=== PATIENT | female | born 1940 | race Caucasian/White ===

== ENCOUNTER 2016-12-31 06:25 | Day surgery (SDC) | payer MEDICARE, OTHER ==
[~2016-12-31 06:25] MED LIST: Lactated Ringers 1,000 ML IV SCH
[2016-12-31] MEDS ORDERED: fentaNYL 100 MCG/2 ML SDV ONE (07:53)
[2016-12-31] MEDS ORDERED: Propofol 200 MG/20 ML SDV ONE (07:53)
[2016-12-31 09:40] VITALS: BP 131/59
--- NOTE | 2016-12-31 14:30 | OR ---
PREOPERATIVE DIAGNOSIS: Screening colonoscopy. POSTOPERATIVE DIAGNOSIS: Polyp at 15 cm, removed. PROCEDURE PROPOSED: Total flexible colonoscopy. PROCEDURE DONE: Total flexible colonoscopy with polypectomy x1. INDICATION: This is a 76-year-old female who comes in for a 10-year screening colonoscopy. She denies any symptomatology. She has a grandmother with a history of polyps. TECHNIQUE: The patient was brought to the endoscopy suite, placed in left lateral decubitus position. She was sedated with propofol per BITUMASTIC APPLIER. The flexible video colonoscope was then passed transanally and under visualization advanced to the cecum without difficulty. Examination revealed a normal ascending, transverse, descending colon. In the sigmoid colon at 15 cm, there was an adenomatous polyp removed by hot snare technique and retrieved with suction, and the remainder of the rectosigmoid was normal as the scope was then withdrawn. The patient tolerated the procedure well. IMPRESSION: Sigmoid polyp at 15 cm removed. Otherwise, normal exam. PLAN: She will be sent a letter with pathology report. I felt she should consider having 1 more examination in her lifetime in 5 years from now, at which point she would be 81 years old. She will be sent a letter with the pathology report. SCM: 12/31/2016 08:44:01 MODL: 12/31/2016 10:20:17 /[id number]
== END 2016-12-31 10:29 | disposition home or self-care (01) ==
LOC: VM.SDS 06:25
PROVIDERS: ATTEND Surgery
DX: Z12.11 Encounter for screening for malignant neoplasm of colon (principal); D12.6 Benign neoplasm of colon, unspecified; I12.9 Hypertensive chronic kidney disease with stage 1 through stage 4 chronic kidney disease, or unspecified chronic kidney disease; N18.3 Chronic kidney disease, stage 3 (moderate); E78.5 Hyperlipidemia, unspecified; Z88.8 Allergy status to other drugs, medicaments and biological substances; Z88.1 Allergy status to other antibiotic agents; Z98.890 Other specified postprocedural states; Z79.899 Other long term (current) drug therapy; K21.9 Gastro-esophageal reflux disease without esophagitis
CPT/HCPCS: 45385; J2704; J3010; J7120; 00810; 88305

== ENCOUNTER 2017-03-30 10:50 | Emergency (ER) | payer MEDICARE, OTHER ==
--- NOTE | 2017-03-30 11:11 | EDM.PDOC ---
ED HPI GENERAL MEDICAL PROBLEM - General Chief Complaint: General Stated Complaint: dizziness Time Seen by Provider: 03/30/17 11:03 Source of Information: Reports: Patient, Family, RN, RN Notes Reviewed History Limitations: Reports: No Limitations - History of Present Illness INITIAL COMMENTS - FREE TEXT/NARRATIVE: Patient presents to the ED at [facility] with complaints of dizziness that started about one month ago and has progressively gotten worse. Patient states her first attack was about a year ago. She saw her PCP who recommended Meclizine , which worked to cure her symptoms at that time. About one month ago, her dizziness started again and has progressively gotten worse. This AM, patient states as she was trying to get out of bed, the dizziness started. She took 50 mg of Meclizine and waited about one hour. She states the dizziness has persisted. Onset: Gradual Duration: Constant - Related Data Allergies Allergy/AdvReac Type Severity Reaction Status Date / Time levofloxacin [From Levaquin] Allergy Nausea and Verified 03/30/17 10:57 Vomiting lisinopril Allergy Cough Verified 03/30/17 10:57 Home Meds: Home Meds Acetaminophen [Tylenol] 650 mg PO Q4H PRN 12/25/16 [History] Albuterol [Proventil HFA] 2 puff PO Q4H PRN 12/25/16 [History] Biotin 1 tab SL ASDIRECTED 12/25/16 [History] Budesonide/Formoterol [Symbicort 80-4.5 MCG] 2 puff INH BID 12/25/16 [History] Calcium Carbonate [Calcium] 600 mg PO BID 12/25/16 [History] Esomeprazole [NexIUM] 40 mg PO DAILY 12/25/16 [History] Fluticasone Propionate [Flonase Allergy Relief] 1 spray NASBOTH BID 12/25/16 [ History] Meclizine [Antivert] 25 mg PO Q4H PRN 12/25/16 [History] Prednisone [IJD: Prednisone] 5 mg PO DAILY 12/25/16 [History] Triamterene/Hydrochlorothiazid [Dyazide 37.5-25] 1 cap PO DAILY 12/25/16 [ History] atorvaSTATin [Lipitor] 10 mg PO DAILY 12/25/16 [History] Gabapentin [Neurontin] 100 mg PO BEDTIME 03/30/17 [History] Past Medical History HEENT History: Reports: Cataract Cardiovascular History: Reports: High Cholesterol, Hypertension Other Cardiovascular History: ATYPICAL CHEST PAIN Respiratory History: Reports: Asthma, Other (See Below) Other Respiratory History: LEFT LUNG LESION Gastrointestinal History: Reports: Diverticulosis, GERD Genitourinary History: Reports: Other (See Below) Other Genitourinary History: CKD III Musculoskeletal History: Reports: Osteoarthritis, Other (See Below) Other Musculoskeletal History: BONE AND CARTILAGE DISORDER Neurological History: Reports: Other (See Below) Other Neuro History: dizziness Psychiatric History: Reports: None Endocrine/Metabolic History: Reports: Other (See Below) Other Endocrine/Metabolic History: GOITER Hematologic History: Reports: None Immunologic History: Reports: Other (See Below) Other Immunologic History: POSITIVE DHEERAJ Oncologic (Cancer) History: Reports: None Dermatologic History: Reports: Other (See Below) Other Dermatologic History: FACIAL LESION. BUTTERFLY RASH - Past Surgical History Head Surgeries/Procedures: Reports: None HEENT Surgical History: Reports: Tonsillectomy GI Surgical History: Reports: Colonoscopy Musculoskeletal Surgical History: Reports: Carpal Tunnel Oncologic Surgical History: Reports: None Social & Family History - Family History Family Medical History: Noncontributory - Tobacco Use Smoking Status *Q: Never Smoker - Caffeine Use Caffeine Use: Reports: Coffee - Alcohol Use Days Per Week of Alcohol Use: 0 Number of Drinks Per Day: 0 Total Drinks Per Week: 0 - Recreational Drug Use Recreational Drug Use: No Drug Use in Last 12 Months: No ED ROS GENERAL - Review of Systems Review Of Systems: See Below Constitutional: Denies: Fever, Chills, Weakness HEENT: Reports: No Symptoms Respiratory: Denies: Shortness of Breath, Cough Cardiovascular: Denies: Chest Pain, Palpitations GI/Abdominal: Reports: Nausea. Denies: Abdominal Pain, Diarrhea, Vomiting Skin: Reports: No Symptoms Neurological: Reports: Dizziness. Denies: Headache, Numbness, Paresthesia, Tingling ED EXAM, GENERAL - Physical Exam Exam: See Below Exam Limited By: No Limitations General Appearance: Alert, No Apparent Distress Eye Exam: Bilateral Eye: EOMI, Normal Inspection, PERRL Ears: Normal External Exam, Normal Canal, Normal TMs Ear Exam: Bilateral Ear: TM normal Head: Atraumatic, Normocephalic Neck: Supple Respiratory/Chest: No Respiratory Distress, Lungs Clear, Normal Breath Sounds Cardiovascular: Normal Peripheral Pulses, Regular Rate, Rhythm, No JVD, No Murmur GI/Abdominal: Normal Bowel Sounds, Soft, Non-Tender Neurological: Alert, Oriented, No Motor/Sensory Deficits Skin Exam: Warm, Dry, Intact, Normal Color, No Rash Course - Vital Signs Last Recorded V/S: Last Vital Signs Temp 35.7 C 03/30/17 10:54 Pulse 64 03/30/17 10:54 Resp 16 03/30/17 10:54 BP 148/80 H 03/30/17 11:05 Pulse Ox 100 03/30/17 10:54 - Orders/Labs/Meds Orders: Active Orders 24 hr Category Date Time Status EKG 12 Lead [EKG Documentation Completion] [RC] STAT Care 03/30/17 11:11 Active Consult to Physical Therapy [PT Evaluation and Cons 03/30/17 12:46 Active Treatment] [CONS] Routine Head wo Cont [CT] Stat Exams 03/30/17 11:41 Taken Ondansetron [Take Home: Ondansetron ODT 4 MG, 2 Tab Med 03/30/17 13:36 Once Pack] 1 packet PO ONETIME ONE Sodium Chloride 0.9% [Saline Flush] Med 03/30/17 11:37 Active 10 ml FLUSH ASDIRECTED PRN Peripheral IV Insertion Adult [OM.PC] Routine Oth 03/30/17 11:37 Ordered Medication Orders Sodium Chloride (Saline Flush) 10 ml FLUSH ASDIRECTED PRN PRN Reason: Keep Vein Open Labs: Laboratory Tests 03/30/17 03/30/17 03/30/17 Range/Units 11:45 11:45 11:55 WBC 9.9 (4.0-10.0) x10^3/uL RBC 4.34 (4.00-5.50) x10^6/uL Hgb 13.5 (12.0-16.0) g/dL Hct 40.0 (33.0-47.0) % MCV 92.2 (78.0-93.0) fL MCH 31.1 (26.0-32.0) pg MCHC 33.8 (32.0-36.0) g/dL RDW Coeff of Genaro 13.0 (10.0-15.0) % Plt Count 190 (130-400) x10^3/uL Neut % (Auto) 72.6 (50.0-80.0) % Lymph % (Auto) 15.5 L (25.0-50.0) % Linn % (Auto) 10.2 (2.0-11.0) % Eos % (Auto) 0.8 (0.0-4.0) % Baso % (Auto) 0.9 (0.2-1.2) % Sodium 136 (136-145) mmol/L Potassium 3.4 L (3.5-5.1) mmol/L Chloride 98 (98-107) mmol/L Carbon Dioxide 31 (21-32) mmol/L BUN 24 H (7-18) mg/dL Creatinine 1.2 H (0.55-1.02) mg/dL Est Cr Clr Drug Dosing 28.65 mL/min Estimated GFR (MDRD) 44 Glucose 85 (74-106) mg/dL Calcium 8.8 (8.5-10.1) mg/dL Urine Color Yellow (YELLOW) Urine Appearance Clear (CLEAR) Urine pH 6.5 (5.0-8.0) Ur Specific Bath 1.015 Urine Protein Negative (NEGATIVE) mg/dL Urine Glucose (UA) Negative (NEGATIVE) mg/dL Urine Ketones Negative (NEGATIVE) mg/dL Urine Occult Blood Negative (NEGATIVE) Urine Nitrite Negative (NEGATIVE) Urine Bilirubin Negative (NEGATIVE) Urine Urobilinogen 0.2 (0.2) EU/dL Ur Leukocyte Esterase Negative (NEGATIVE) Urine RBC 0-5 (NOT SEEN) /HPF Urine WBC 0-5 (NOT SEEN) /HPF Ur Squamous Epith Cells Rare (NEGATIVE) /HPF Urine Bacteria Few H (NEGATIVE) /HPF Urine Mucus Not seen (NEGATIVE) /LPF Meds: Medications Generic Name Dose Route Start Last Admin Trade Name Freq PRN Reason Stop Dose Admin Sodium Chloride 10 ml 03/30/17 11:37 Saline Flush FLUSH ASDIRECTED PRN Keep Vein Open Discontinued Medications Generic Name Dose Route Start Last Admin Trade Name Freq PRN Reason Stop Dose Admin Sodium Chloride 1,000 mls @ 999 mls/hr 03/30/17 11:37 03/30/17 11:50 Normal Saline IV 03/30/17 12:37 999 mls/hr ONETIME ONE Administration Promethazine HCl 12.5 mg/ 100.5 mls @ 400 mls/hr 03/30/17 12:44 03/30/17 12: 58 Sodium Chloride IV 03/30/17 12:59 400 mls/hr ONETIME ONE Administration Ondansetron HCl 4 mg 03/30/17 11:42 03/30/17 11:51 Zofran IVPUSH 03/30/17 11:43 4 mg ONETIME ONE Administration Scopolamine 1.5 mg 03/30/17 12:45 03/30/17 12:58 Transderm-Scop TOP 03/30/17 12:46 1.5 mg ONETIME ONE Administration - Radiology Interpretation Free Text/Narrative:: CT Head: No plain CT evidence of acute intracranial process - see scanned report in EMR - Re-Assessments/Exams Free Text/Narrative Re-Assessment/Exam: 03/30/17 13:33 Patient states she feels better and would like to try going home. Discussed PT order for BPPV with patient. Also instructed to call PCP tomorrow if not feeling any better. Patient verbalized understanding. Departure - Departure Time of Disposition: 13:34 Disposition: Home, Self-Care 01 Condition: good Clinical Impression: Dizziness Nausea & vomiting Qualifiers: Vomiting type: unspecified Vomiting Intractability: non-intractable Qualified Code(s): R11.2 - Nausea with vomiting, unspecified - Discharge Information Instructions: Dizziness, Nausea, Adult Referrals: Kimberly Quick MD [Primary Care Provider] - Forms: ED Department Discharge Additional Instructions: 1. Stay well hydrated and rest 2. Physical Therapy should be contacting you tomorrow to set up appointment with Zach Quick 3. Call your PCP tomorrow if you symptoms get worse 4. Call or return for any questions/problems - Problem List Review Problem List Initiated/Reviewed/Updated: Yes - My Orders Last 24 Hours: My Active Orders 03/30/17 11:11 EKG 12 Lead [EKG Documentation Completion] [RC] STAT 03/30/17 11:37 Sodium Chloride 0.9% [Saline Flush] 10 ml FLUSH ASDIRECTED PRN Peripheral IV Insertion Adult [OM.PC] Routine 03/30/17 11:41 Head wo Cont [CT] Stat 03/30/17 12:46 Consult to Physical Therapy [PT Evaluation and Treatment] [CONS] Routine 03/30/17 13:36 Ondansetron [Take Home: Ondansetron ODT 4 MG, 2 Tab Pack] 1 packet PO ONETIME ONE - Assessment/Plan Last 24 Hours: My Active Orders 03/30/17 11:11 EKG 12 Lead [EKG Documentation Completion] [RC] STAT 03/30/17 11:37 Sodium Chloride 0.9% [Saline Flush] 10 ml FLUSH ASDIRECTED PRN Peripheral IV Insertion Adult [OM.PC] Routine 03/30/17 11:41 Head wo Cont [CT] Stat 03/30/17 12:46 Consult to Physical Therapy [PT Evaluation and Treatment] [CONS] Routine 03/30/17 13:36 Ondansetron [Take Home: Ondansetron ODT 4 MG, 2 Tab Pack] 1 packet PO ONETIME ONE
[2017-03-30 11:19] VITALS: BP 148/80
[2017-03-30] MEDS ORDERED: Sodium Chloride 0.9% 1,000 ML IV ONE (11:37)
[2017-03-30] MEDS ORDERED: Sodium Chloride 0.9% 10 ML Syringe FLUSH PRN (11:37)
[2017-03-30] MEDS ORDERED: Ondansetron 4 MG/2 ML SDV IVPUSH ONE (11:42)
[2017-03-30] MEDS ORDERED: Promethazine 12.5 MG in Sodium Chloride 0.9% 100 ML IV ONE (12:44)
[2017-03-30] MEDS ORDERED: Scopolamine 1.5 MG Transdermal Patch TOP ONE (12:45)
[2017-03-30] MEDS ORDERED: Take Home: Ondansetron 4 MG Tab.DIS, 2 Tab Pack PO ONE (13:36)
== END 2017-03-30 13:52 | disposition home or self-care (01) ==
LOC: VM.ED 10:50
DX: R11.2 Nausea with vomiting, unspecified (principal); I12.9 Hypertensive chronic kidney disease with stage 1 through stage 4 chronic kidney disease, or unspecified chronic kidney disease; N18.3 Chronic kidney disease, stage 3 (moderate); Z88.8 Allergy status to other drugs, medicaments and biological substances; Z79.899 Other long term (current) drug therapy; E78.00 Pure hypercholesterolemia, unspecified; M19.90 Unspecified osteoarthritis, unspecified site
CPT/HCPCS: 36415; 70450; 80048; 81001; 85025; 93005; 96361; 96365; 96375; 99284; A9270; J2405; J2550; J7030; J7050

== ENCOUNTER 2022-09-08 12:25 | Emergency (ER) | payer MEDICARE, OTHER ==
[2022-09-08] MEDS ORDERED: Sodium Chloride 0.9% 10 ML Syringe FLUSH PRN (12:44)
[2022-09-08] MEDS ORDERED: Diltiazem 50 MG/10 ML SDV IVPUSH ONE (12:53)
[2022-09-08 13:06] LABS: PTT,PARTIAL THROMBOPLSTIN TIME 22.7 SEC (20.5-30.9)
[2022-09-08 13:17] LABS: CHLORIDE,CL 91 mmol/L (98-107); SODIUM,NA 131 mmol/L (136-145)
[2022-09-08 13:18] LABS: ANION GAP 12.9 mmol/L (5-15); ESTIMATED GFR 45 mL/min (>=60)
[2022-09-08] MEDS ORDERED: Heparin Sodium/0.45% NaCl 25,000 UNITS/500 ML BAG IV STA (13:28)
[2022-09-08] MEDS ORDERED: Heparin Sodium 5,000 Units/ML Vial IVPUSH ONE (13:28)
[2022-09-08] MEDS ORDERED: Aspirin 81 MG Tab.Chew PO ONE (13:35)
[2022-09-08 13:56] LABS: CORONAVIRUS COVID-19 NAA NEGATIVE (NEGATIVE); RESPIRATORY SYNCYTIAL VIR NAA NEGATIVE (NEGATIVE)
[2022-09-08] MEDS ORDERED: Potassium Chloride Riders 20 MEQ in Premix Bag 1 BAG IV ONE (14:12)
[2022-09-08] MEDS ORDERED: Nitroglycerin 0.4 MG Tab.SL SL ONE (14:27)
[2022-09-08 16:35] VITALS: BP 130/62; PULSE 98
== END 2022-09-08 14:40 | disposition short-term general hospital (02) ==
LOC: VM.ED 12:25
DX: I21.4 Non-ST elevation (NSTEMI) myocardial infarction (principal); I48.91 Unspecified atrial fibrillation; E78.00 Pure hypercholesterolemia, unspecified; K21.9 Gastro-esophageal reflux disease without esophagitis; I12.9 Hypertensive chronic kidney disease with stage 1 through stage 4 chronic kidney disease, or unspecified chronic kidney disease; N18.30 Chronic kidney disease, stage 3 unspecified; J45.909 Unspecified asthma, uncomplicated; M19.90 Unspecified osteoarthritis, unspecified site; Z88.1 Allergy status to other antibiotic agents; Z88.8 Allergy status to other drugs, medicaments and biological substances; Z20.822 Contact with and (suspected) exposure to COVID-19
CPT/HCPCS: 0241U; 71045; 80053; 83735; 83880; 84100; 84443; 84484; 85025; 85610; 85730; 86140; 93005; 96365; 96368; 99285; A9270; J1644; J3480